=== PATIENT | male | born 1980 | race Caucasian/White ===

== ENCOUNTER 2018-04-12 02:20 | Emergency (ER) | payer BC, SELFPAY ==
[2018-04-12 02:22] VITALS: BP 137/78; PULSE 111; RESP 20; TEMP 37.1; O2SAT 96; BMI 27.7
[2018-04-12 02:24] VITALS: O2SAT 96
[2018-04-12] MEDS: predniSONE 20 MG Tablet 60 MG PO (02:46)
--- NOTE | 2018-04-12 02:50 | ED.VISSUMM ---
- ER Visit Summary Date of Service: 04/12/18 Chief Complaint: Asthma exacerbation History of Present Illness: The patient is a 37 M presenting for evaluation secondary to an asthma exacerbation. Patient reports that over the course the last week he has had a gradual worsening of a asthma exacerbation. Patient reports that it is associated with wheezing on exertion, and a mild cough. Denies any fevers chest pain nausea vomiting sore throat rhinorrhea or any other infectious signs or symptoms. Patient typically is on Symbicort, and does not typically use a rescue inhaler but he is out of his Symbicort. Physical Examination: Vital signs are within normal limits except for tachycardia with a heart rate of 111, patient is afebrile. General: Patient is well-nourished well-developed and in no acute distress. Head: Normocephalic, atraumatic Eyes: Pupils equal round and reactive bilaterally, extra occular motion intact bialterally ENT: Moist mucous membranes Neck: Supple, no lymphadenopathy, no JVD, no meningismus CVS: Heart regular rhythm with tachycardia, no murmurs, rubs or gallops, radial pulses 2+ bilaterally Resp: Respirations nondistressed, lung sounds showed minimal wheezes bilaterally Abdomen: Soft, nontender, nondistended, no palpable masses, normal bowel sounds Back: Nontender Extremities: Nontender, atraumatic, active full range of motion, no peripheral edema Skin: warm, no rashes, no petechia Neuro: Alert and oriented x 4, CN 2-12 intact, no lateralizing neurological defecits Psyc: Normal affect Test Results: None indicated Emergency Department Course and Treatment: Patient presented for evaluation secondary to shortness of breath. He has an underlying history of asthma and was wheezing symmetrically. Patient was given DuoNeb breathing treatment and prednisone in the emergency department. I do not believe that further workup is indicated. Patient will be given a prescription for prednisone, albuterol, and Symbicort. He is instructed to follow-up with primary care. Disposition: Discharge Impression: 1. Asthma exacerbation This note was generated with [employer] dictation software. It may contain incorrect words, spelling, and punctuation that were not noted in review of the chart prior to signing ED Disposition - Plan for ED Patient: Disposition: Home or Assisted Living Chief Complaint: Asthma Diagnosis: Asthma exacerbation Instructions: ED Reactive Airway Disease Prescriptions: Albuterol Inhaler [Ventolin Hfa] 2 puff INHALATION Q4H PRN PRN #1 inhaler PRN Reason: Wheezing Prednisone [Deltasone] 60 mg PO DAILY #15 tab Budesonide/Formoterol 160/4.5 [Symbicort 160/4.5 Mcg Inhaler (SP)] 2 puff INHALATION BID #1 inhaler Referrals: [facility] Doctor,Out of [Primary Care Provider] - 3-5 Days if not improving
--- NOTE | 2018-04-12 02:56 | ED.RN ---
RESP[facility]ATORY [facility]ERAP[facility] CALLED FOR BREATHING TREATMENT
[2018-04-12 03:10] VITALS: PULSE 110; RESP 16
[2018-04-12] MEDS: Ipratropium/Albuterol Sulfate 3 ML AMPUL.NEB INHALATION (03:11)
[2018-04-12 03:33] VITALS: BP 132/78; PULSE 89; RESP 16; O2SAT 98
== END 2018-04-12 03:34 | disposition home or self-care (01) ==
LOC: ED 03:09
PROVIDERS: Emergency Provider Emergency Medicine; Family Provider Internal Medicine; PCP Internal Medicine
DX: J45.901 Unspecified asthma with (acute) exacerbation (principal)
CPT/HCPCS: 94640; 99283

== ENCOUNTER 2018-04-28 08:07 | Emergency (ER) | payer BC, SELFPAY ==
[2018-04-28 08:10] VITALS: BP 119/86; PULSE 114; RESP 17; TEMP 37; O2SAT 97; BMI 27.8
--- NOTE | 2018-04-28 08:32 | ED.DCSUM_ITS ---
- ER Visit Summary Date of Service: 04/28/18 Chief Complaint: [] Constant hiccups for 2 days History of Present Illness: The patient is a 37 M [] is known diverticulosis all very controlled reports 3 days ago he had a vomiting diarrhea illness that resolved but since that time has had constant hiccups he is having no pain no fever no cough he also reports a constant sense of burning liquid in his throat and he now has no history of reflux, and he also reports constant sense of dysphagia when he swallows solids that is not new or different now his issue now is the hiccups he denies any health problems he has no other complaints he has no other review of systems, he has no cardiovascular history he denies chest pain Reports as he was coming to his room he coughed quite a bit and after coughing his hiccups have stopped Physical Examination: [] 141/80 General, no distress resting comfortably HEENT is generally unremarkable The neck is supple no adenopathy Cardiovascular, regular rate and rhythm Lungs, clear bilateral Abdomen, soft nontender Extremities, no clubbing cyanosis or edema Neurologic, awake alert answering questions appropriately moving all 4 extremities The patient looks well there is nothing on physical exam he has no head neck chest or abdominal pain his hiccups have resolved he complains bitterly of this acid sensation in his throat since all this began, and he is questioning whether his chronic difficulty swallowing food is related, Explained to him we could obtain EKG lab testing other workup etc. he declined that he is actually quite happy that he has stopped having hiccups Through the long differential including reflux cancer other conditions clinically looks well which was a GI cocktail, he will be started on Prilosec, I have instructed him to follow-up with his outpatient providers and to obtain a referral from GI for further management stand soft foods and he will do so he is comfortable with this plan Test Results: [] Emergency Department Course and Treatment: [] Treatment Plan: [] Disposition: [] Home stable Impression: [] Hiccups resolved, symptoms of reflux This note was generated with [employer] dictation software. It may contain incorrect words, spelling, and punctuation that were not noted in review of the chart prior to signing ED Disposition - Plan for ED Patient: Chief Complaint: Other, Pain/Inj Referrals: Sanam Jorgensen DO [Primary Care Provider] -
--- NOTE | 2018-04-28 08:32 | ED.DEP ---
ED Disposition - Plan for ED Patient: Chief Complaint: Other, Pain/Inj Instructions: ED GERD Prescriptions: Omeprazole [Prilosec] 20 mg PO DAILY #30 cap Referrals: Sanam Jorgensen DO [Primary Care Provider] -
[2018-04-28] MEDS: Mag Hydrox/Al Hydrox/Simeth 30 ML UDC PO (09:01)
== END 2018-04-28 09:03 | disposition home or self-care (01) ==
LOC: ED 08:52
PROVIDERS: Emergency Provider Emergency Medicine; Family Provider Internal Medicine; PCP Internal Medicine
DX: R06.6 Hiccough (principal); K21.9 Gastro-esophageal reflux disease without esophagitis; J45.909 Unspecified asthma, uncomplicated; K57.90 Diverticulosis of intestine, part unspecified, without perforation or abscess without bleeding
CPT/HCPCS: 99283

== ENCOUNTER 2018-08-16 19:42 | Emergency (ER) | payer BC, SELFPAY ==
[2018-07-04 09:27] VITALS: BMI 27.8
[2018-08-16 19:43] VITALS: BP 138/89; PULSE 87; RESP 20; TEMP 36.4; O2SAT 97; BMI 28.1
--- NOTE | 2018-08-16 21:43 | CT_ITS ---
STUDY: CT ABDOMEN AND PELVIS WITHOUT CONTRAST REASON FOR EXAM: Male, 37 years old. Left-sided abdominal pain. RADIATION DOSAGE (If Supplied By Facility): CTDIvol = ( 11.27 ) mGy, DLP = ( 633.83 ) mGycm TECHNIQUE: Transaxial images were obtained from the dome of the diaphragm to the symphysis pubis without oral contrast, and without intravenous contrast. Sagittal and coronal images were reconstructed. Individualized dose optimization techniques were used for this CT. COMPARISON: 04/02/2012. FINDINGS: Lung bases are clear. Visualized heart is normal. The liver is unremarkable. The gallbladder is unremarkable. The spleen and pancreas are unremarkable. The adrenal glands are normal. The kidneys are unremarkable. No stones or hydronephrosis. The aorta is normal in caliber. There is no free fluid, free air, or organized collection. No bowel obstruction or inflammatory change. Normal appendix. Urinary bladder is unremarkable. Normal abdominal wall. Normal osseous structures. CT/Abdomen/Pelvis without Cont IMPRESSION: Normal CT of the abdomen and pelvis. Electronically Signed: Mariola Amador MD at 23:05 EDT Tel , Service support ,
[2018-08-16] MEDS: Morphine 4 MG/ML Syringe IV (22:12)
[2018-08-16] MEDS: 0.9% Normal Saline 1,000 ML 150 ML IV (22:12)
[2018-08-16] MEDS: proMETHazine 25 MG/ML Syringe 12.5 MG IV (22:12)
[2018-08-16 22:17] VITALS: PULSE 82; RESP 14
[2018-08-16 22:24] LABS: Bacteria 0 SEEN /hpf (None Seen); Mucous, Urine 0 SEEN /hpf (<or=2+); Red Blood Cells-Urine 0 SEEN /hpf (0-5); Squamous Epithelial Cells - UA 0 SEEN /hpf (0-5); White Blood Cells 0 SEEN /hpf (0-5)
--- NOTE | 2018-08-16 22:25 | RAD_ITS ---
STUDY: X-RAY CHEST REASON FOR EXAM: Male, 37 years old. Chest pain TECHNIQUE: Frontal and lateral views COMPARISON: June 07, 2014 FINDINGS: The lungs are expanded. There is left lingular atelectasis/scarring. Normal size heart. Normal mediastinum and linda. Normal visualized pulmonary arteries. Normal visualized aortic arch and descending thoracic aorta. Normal visualized thoracic spine. Normal visualized ribs, clavicles, and shoulders. There is no demonstrated abnormality of the visualized soft tissue structures of the upper abdomen. RAD/Chest PA and Lateral IMPRESSION: Mild left lingular atelectasis/scarring. Electronically Signed: Oliver Mckeon DO at 23:54 EDT Tel [phone], Service support ,
[2018-08-16 22:28] LABS: Absolute Lymphocyte Count 1.81 X10^3/ul (0.83-4.51); Absolute Neutrophil Count 3.2 X10^3/uL (2.0-7.7); Basophil# 0.03 X10^3/uL; Basophil% 0.5 % (0-1); Eosinophil# 0.28 X10^3/uL; Eosinophils% 4.8 % (0-5); Hematocrit 47.4 % (40-54); Hemoglobin 15.7 g/dl (13.0-16.5); Lymphocyte # 1.81 X10^3/ul (4.0); Lymphocyte % 31.2 % (19-41); Mean Corp Hgb Conc 33.1 g/gl (32-36); Mean Corpuscular Hgb 30.7 pg (27.0-32.0); Mean Corpuscular Volume 92.6 fL (80-94); Mean Platelet Vol. 8.9 fl (6.2-12.0); Monocyte# 0.51 X10^3/uL; Monocyte% 8.8 % (0-10); Neutrophil # 3.16 X10^3/uL (2.7-7.7); Neutrophil % 54.5 % (47-70); Platelet Count 286 K/mm3 (150-450); RBC Distribution Width CV 13.2 % (11.6-14.6); RBC Distribution Width SD 44.8 fl (35.1-43.9); Red Blood Count 5.12 M/mm3 (4.6-6.2); White Blood Count 5.8 K/mm3 (4.4-11.0)
[2018-08-16 22:30] LABS: POSITIVE COUNT NO; POSITIVE DIFFERENTIAL NO; POSITIVE MORPHOLOGY NO
[2018-08-16 22:34] LABS: Color, Urine Yellow (Yellow); Glucose, Dipstick Normal (Normal); Ketone-Dipstick Negative (Negative); Leukocyte Esterase-Dipstick 25 /ul (Negative); Nitrite-Dipstick Negative (Negative); Occult Blood-Urine Negative /ul (Negative); Protein-Dipstick Negative (Negative); Specific Gravity, Urine 1.015 (1.002-1.030); Urine Bilirubin Dipstick Negative (Negative); Urine Clarity Clear (Clear); Urine Urobilinogen Normal (Normal); Urine pH 6.5 (5.0 - 8.0)
[2018-08-16 22:45] LABS: Anion Gap 6 (5-15); BUN 13 mg/dL (7-18); Calcium,Total 8.4 mg/dL (8.5-10.1); Chloride 108 mmol/L (98-107); EST Glomerular Filtration Rate 88 mL/min (>60); Est Glom Filt Rate - Afr Amer 107 mL/min (>60); Estimated Creatinine Clearance 112.08 ml/min; Glucose 88 mg/dL (74-106); Potassium 4.1 mmol/L (3.5-5.1); Sodium Level 139 mmol/L (136-145)
--- NOTE | 2018-08-17 00:10 | ED.VISSUMM ---
- ER Visit Summary Date of Service: 08/17/18 Chief Complaint: [Pain to chest wall] History of Present Illness: The patient is a 37 M [presents to the emergency department complaining of pain to his left chest wall that started 2 days ago. Patient states that he was leaned over the velazquez of his truck when he felt a pop in his anterior chest initially was not too bad but then developed more more discomfort. Patient states the pain is worse with movement and at times with deep breath. Denies any cough or hemoptysis. He denies any fever. Patient does have a history of asthma and diverticulitis.] Physical Examination: [HEENT-PERRLA, EOMI. Cranial nerves II through XII grossly intact. TMs clear. Mucous membranes moist. No adenopathy. Cardiovascular-regular rate and rhythm without murmur or ectopy Lungs-clear to auscultation, chest wall stable without crepitus or subcu emphysema. Patient has tenderness over the left anterior chest wall that seems to reproduce his pain. Abdomen-normoactive bowel sounds, soft. Patient does have tenderness over the left upper abdomen with guarding. There is no rebound, rigidity, or perineal signs. There is no ecchymosis or bruising noted on the abdomen. Extremities-intact ?4, normal range of motion, normal pulses, atraumatic] Test Results: [CBC with differential obtained showed a white count of 5.8. Chemistries were normal. Urinalysis was normal. Chest x-ray showed some atelectasis of the left lower lobe. CT scan of the abdomen pelvis was normal.] Emergency Department Course and Treatment: [Patient was medicated with morphine and Zofran.] Treatment Plan: [Patient will be given a prescription for Percocet and naproxen.] Disposition: [Discharged home in stable condition. Patient advised to follow-up with primary care physician within next 3-5 days.] Impression: [Chest wall strain Abdominal pain] This note was generated with [employer] dictation software. It may contain incorrect words, spelling, and punctuation that were not noted in review of the chart prior to signing ED Disposition - Plan for ED Patient: Referrals: Sanam Jorgensen DO [Primary Care Provider] -
--- NOTE | 2018-08-17 00:13 | ED.DCSUM_ITS ---
- ER Visit Summary Date of Service: 08/17/18 Chief Complaint: [Pain to chest wall] History of Present Illness: The patient is a 37 M [presents to the emergency department complaining of pain to his left chest wall that started 2 days ago. Patient states that he was leaned over the velazquez of his truck when he felt a pop in his anterior chest initially was not too bad but then developed more more discomfort. Patient states the pain is worse with movement and at times with deep breath. Denies any cough or hemoptysis. He denies any fever. Patient does have a history of asthma and diverticulitis.] Physical Examination: [HEENT-PERRLA, EOMI. Cranial nerves II through XII grossly intact. TMs clear. Mucous membranes moist. No adenopathy. Cardiovascular-regular rate and rhythm without murmur or ectopy Lungs-clear to auscultation, chest wall stable without crepitus or subcu e mphysema. Patient has tenderness over the left anterior chest wall that seems to reproduce his pain. Abdomen-normoactive bowel sounds, soft. Patient does have tenderness over the left upper abdomen with guarding. There is no rebound, rigidity, or perineal signs. There is no ecchymosis or bruising noted on the abdomen. Extremities-intact ?4, normal range of motion, normal pulses, atraumatic] Test Results: [CBC with differential obtained showed a white count of 5.8. Chemistries were normal. Urinalysis was normal. Chest x-ray showed some atelectasis of the left lower lobe. CT scan of the abdomen pelvis was normal.] Emergency Department Course and Treatment: [Patient was medicated with morphine and Zofran.] Treatment Plan: [Patient will be given a prescription for Percocet and naproxen.] Disposition: [Discharged home in stable condition. Patient advised to follow-up with primary care physician within next 3-5 days.] Impression: [Chest wall strain Abdominal pain] This note was generated with [employer] dictation software. It may contain incorrect words, spelling, and punctuation that were not noted in review of the chart prior to signing ED Disposition - Plan for ED Patient: Referrals: Sanam Jorgensen DO [Primary Care Provider] -
--- NOTE | 2018-08-17 00:13 | ED.DEP ---
ED Disposition - Plan for ED Patient: Instructions: ED Strain Chest Wall, ED Abdominal Pain Unkn Cause Prescriptions: Oxycodone HCl/Acetaminophen [Percocet 5/325] 1 tab PO Q6H PRN PRN 5 Days #20 tab PRN Reason: Pain Naproxen [Naprosyn] 500 mg PO BID PRN #20 tab Referrals: Sanam Jorgensen DO [Primary Care Provider] - 3-5 Days
[2018-08-17 00:28] VITALS: BP 127/91; PULSE 60; RESP 16
[2018-08-17] MEDS: HYDROcodone Bitartrate/Apap 5/325 Tablet PO (00:33)
== END 2018-08-17 00:34 | disposition home or self-care (01) ==
PROVIDERS: Emergency Provider Emergency Medicine; Family Provider Internal Medicine; PCP Internal Medicine
DX: S29.011A Strain of muscle and tendon of front wall of thorax, initial encounter (principal); R10.9 Unspecified abdominal pain; J45.909 Unspecified asthma, uncomplicated; X50.9XXA Other and unspecified overexertion or strenuous movements or postures, initial encounter; Y93.9 Activity, unspecified; Y92.89 Other specified places as the place of occurrence of the external cause; Y99.9 Unspecified external cause status
CPT/HCPCS: 71046; 74176; 80048; 81001; 85025; 96361; 96374; 96375; 99283; J7030

== ENCOUNTER 2018-12-03 06:22 | Emergency (ER) | payer OTHER, BC, SELFPAY ==
[2018-10-26 09:15] VITALS: BMI 28.1
[2018-12-03 06:23] VITALS: BP 149/92; PULSE 81; RESP 18; TEMP 36.9; O2SAT 100; BMI 29.1
--- NOTE | 2018-12-03 06:31 | ED.DCSUM_ITS ---
- ER Visit Summary Date of Service: 12/03/18 Chief Complaint: Lip trauma History of Present Illness: The patient is a 38 M who sustained a trauma to the lip this morning. He stepped on a rake in the wake him in the face. No LOC. He complains of some lower lip abdominal pain. Denies any tooth pain. He did not lose any teeth. His immunizations are up-to-date. Physical Examination: Vital signs are reviewed. HEENT exam reveals a lower lip contusion. He has a small subcentimeter superficial laceration of the bottom part of the lip. His teeth are intact. The laceration is superficial and measures 0.25 cm. His GCS is 15. Neurologic exam normal Test Results: None performed Emergency Department Course and Treatment: The patient's laceration is very superficial. I feel he does not require any repair at this time. He has a lower lip contusion with normal tooth. He will ice this area. NSAIDs for pain. He will have Worker's Compensation forms filled out. Treatment Plan: [] Disposition: Discharge Impression: Lower lip contusion, superficial lip laceration 0.25 cm This note was generated with [employer] dictation software. It may contain incorrect words, spelling, and punctuation that were not noted in review of the chart prior to signing ED Disposition - Plan for ED Patient: Referrals: Sanam Jorgensen DO [Primary Care Provider] -
--- NOTE | 2018-12-03 06:33 | DCINST.ED_ITS ---
ED Disposition - Plan for ED Patient: Disposition: Home or Assisted Living Instructions: LACERATION, All Referrals: Sanam Jorgensen DO [Primary Care Provider] - [facility] [GROUP OF PHYSICIANS] -
== END 2018-12-03 07:34 | disposition home or self-care (01) ==
LOC: ED 06:43
PROVIDERS: Emergency Provider Emergency Medicine; Family Provider Internal Medicine; PCP Internal Medicine
DX: S01.511A Laceration without foreign body of lip, initial encounter (principal); W22.8XXA Striking against or struck by other objects, initial encounter; Y93.9 Activity, unspecified; Y92.9 Unspecified place or not applicable; Y99.9 Unspecified external cause status; J45.909 Unspecified asthma, uncomplicated
CPT/HCPCS: 99283

== ENCOUNTER → 2020-01-02 08:00 | Outpatient (CLI) | payer BC, SELFPAY ==
--- NOTE | 2020-01-02 08:09 | RAD_ITS ---
STUDY: X-RAY - ESOPHAGUS (BARIUM SWALLOW) WITH FLUOROSCOPY REASON FOR EXAM: Male, 39 years old. DYSPHAGIA X YEARS WITH FOOD. HX OF ASTHMA TECHNIQUE: 23 view(s) of the esophagus were obtained following swallowing of barium. FLUOROSCOPY TIME (if supplied): (0:30) minutes/seconds COMPARISON: None. FINDINGS: There is no demonstrated esophageal foreign body. There is no demonstrated stricture or mucosal abnormality. Normal gastroesophageal junction, without a demonstrated hiatal hernia. The patient ingested a 12 mm tablet of barium without difficulty. Normal visualized aortic arch and descending thoracic aorta. Normal visualized pulmonary parenchyma. Normal visualized osseous structures of the thorax. RAD/Esophagus Single Contrast IMPRESSION: Normal plain film x-ray examination (barium swallow) of the esophagus. Electronically Signed: Rodney Peter, at 15:11 EDT , Service support ,
== END ==
PROVIDERS: PCP Internal Medicine; Referring Provider Internal Medicine; Visit Provider Internal Medicine
DX: R13.10 Dysphagia, unspecified (principal)
CPT/HCPCS: 74220

== ENCOUNTER → 2020-02-01 17:38 | Outpatient (CLI) | payer BC, SELFPAY | PROVIDERS: PCP Internal Medicine; Referring Provider Internal Medicine Gastroenterology; Visit Provider Internal Medicine Gastroenterology | DX: Z11.59 Encounter for screening for other viral diseases (principal) | CPT/HCPCS: 87635; 94799; U0003 ==